=== PATIENT | female | born 1990 ===

== ENCOUNTER 2020-12-24 13:39 | Outpatient (REF) | payer BC, OTHER, SELFPAY | END 2020-12-24 13:40 | disposition home or self-care (01) | LOC: HO.LAB 13:39 | PROVIDERS: Visit Provider Internal Medicine | DX: Z20.822 Contact with and (suspected) exposure to COVID-19 (principal) | CPT/HCPCS: C9803; U0003; U0005 ==

== ENCOUNTER 2021-01-28 09:05 | Outpatient (REF) | payer BC, OTHER, SELFPAY ==
[2021-01-28 09:27] LABS: COVID-19 Test Negative (Negative)
== END 2021-01-28 09:06 | disposition home or self-care (01) ==
LOC: HO.LAB 09:05
PROVIDERS: PCP Family Medicine; Visit Provider Internal Medicine
DX: Z20.822 Contact with and (suspected) exposure to COVID-19 (principal)
CPT/HCPCS: 36415; 87635; C9803

== ENCOUNTER 2021-03-25 09:57 | Outpatient (REF) | payer BC, OTHER, SELFPAY ==
[2021-03-25 10:32] LABS: COVID-19 Test Negative (Negative)
== END 2021-03-25 09:58 | disposition home or self-care (01) ==
LOC: HO.LAB 09:57
PROVIDERS: Visit Provider Internal Medicine
DX: Z20.822 Contact with and (suspected) exposure to COVID-19 (principal)
CPT/HCPCS: 36415; 87635; C9803

== ENCOUNTER 2023-01-05 10:44 | Emergency (ER) | payer BC, SELFPAY ==
--- NOTE | ~2023-01-05 | XR_ITS ---
EXAMINATION: XR CHEST CLINICAL INFORMATION: Chest pain COMPARISON: 02/10/2009 TECHNIQUE: 2 views of the chest were obtained. FINDINGS: No significant abnormality is noted involving the heart, lungs, mediastinum, bony thorax or soft tissues. XR/XR chest 2V IMPRESSION: Unremarkable examination.
--- NOTE | 2023-01-05 10:46 | ECG_ITS ---
Test Reason : CHEST PAIN Blood Pressure : / mmHG Vent. Rate : 064 BPM Atrial Rate : 064 BPM P-R Int : 154 ms QRS Dur : 080 ms QT Int : 396 ms P-R-T Axes : 040 009 024 degrees QTc Int : 408 ms Normal sinus rhythm Normal ECG When compared with ECG of 10-FEB-2009 18:24, No significant change was found Referred By: Generic ED Physician Electronically Signed By:HOMA CARR
[2023-01-05 10:49] VITALS: BP 113/62; PULSE 61; RESP 16; TEMP 36.6; O2SAT 99; BMI 32.7
--- OUTSIDE RECORDS SUMMARY | 2023-01-05 11:14 | XMS_ITS | Continuity of Care Document ---
Author Name Unknown Organization [facility] Address [address] [place] [address]- Care Team Providers Care Finish Rolls Operator Name Role Phone Not on Staff, PCP Primary Care Physician Unavail able Encounter 10/17/19 - 10/24/19 [facility] [address], [address] [place] [address]- [phone] Attending Physician: Matt Tompkins MD Admitting Physician: Not on Staff, Attending MD Referring Physician: Matt Tompkins MD Allergies, Adverse Reactions, Alerts Substance Reaction Severity Status Bactrim Active Immunizations Given and Recorded Vaccine Date Status Refusal Reason tetanus/diphtheria/pertussis, acel(Tdap) 1 04/17/17 Given 1Result Comment: [04/17/2017] vis sheet given nka Medications Diflucan 150 mg oral tablet 1 tablet = 150 mg, By Mouth, Once, # 1 tablet, 0 Refills, Soft Stop, 07/20/17 12:50:00 EDT, Tablet Start Date: 07/20/17 Status: Ordered Ibuprofen Refills 0, Maintenance, 06/13/17 10:23:05 Start Date: 06/13/17 Status: Ordered Tylenol 325 mg oral tablet 650 mg, 2, tablet, By Mouth, Every 4 hours, Refills 0, Maintenance, 06/13/17 10:23:20 Start Date: 06/13/17 Status: Ordered Problem List Condition Effective Dates Status Health Status Inform ant 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 Pap neg 04/2016. Next pap cotesting due 3 months PP Social History Social History Type Response Smoking Status Never smoker entered on: 08/04/17 Sex
--- OUTSIDE RECORDS SUMMARY | 2023-01-05 11:14 | XMS_ITS | Continuity of Care Document ---
Author Name Unknown Organization [facility] Address [address] [place] [id number] Care Team Providers Care Aviation Project Manager Name Role Phone Not on Staff, PCP Primary Care Physician Unavail able [place] [facility] [place] 10/01/19 - 10/31/[address] [address]- [facility] Attending Physician: Dolores Noyola Admitting Physician: Dolores Noyola Referring Physician: Dolores Noyola Allergies, Adverse Reactions, Alerts Substance Reaction Severity [...]
--- NOTE | 2023-01-05 11:18 | ED_ITS ---
HPI - Chest Pain General Chief Complaint: Chest Pain Stated Complaint: chest pain/ L arm pain Time Seen by Provider: 01/05/23 11:07 Source: patient Mode of arrival: ambulatory Limitations: no limitations History of Present Illness HPI narrative: Patient is a 32-year-old female with history of anxiety presenting to the emergency department complaining intermittent chest pain for the past week. States episodes lasts several seconds and then resolved spontaneously. Also complains of pain radiating to left arm. Denies palpitations. Reports that symptoms improved with taking a deep breath. States she is unsure if symptoms are related to anxiety. Reports that her last menstrual period was 11/29. Had 1 episode of lightheadedness today with associated facial tingling. Denies cough or shortness of breath. Denies any nasal congestion, sore throat, other URI symptoms. Denies fevers. Denies abdominal pain. Does report occasional nausea but denies vomiting, diarrhea, constipation. MD complaint: chest pain Onset (ago): day(s) Timing of current episode: episodic Onset: during rest Pain location: substernal Pain radiation: left arm Severity: moderate Quality: heaviness Relieving factors: nothing Exacerbating factors: nothing Associated symptoms: nausea and other (Lightheadedness) Treatment prior to arrival: none Related Data Allergies Allergy/AdvReac Type Severity Reaction Status Date / Time Sulfa (Sulfonamide Allergy Unknown hives Verified 01/05/23 10:54 Antibiotics) sulfamethoxazole Allergy Unknown RASH Verified 01/05/23 10:54 [From BACTRIM] trimethoprim [From BACTRIM] Allergy Unknown RASH Verified 01/05/23 10:54 Review of Systems 2 Review of Systems: As per HPI. Yes all other systems are reviewed and are negative Constitutional: Constitutional: Reports as per HPI [facility] Social History Social History Advance Directives: No Advance Directives Information Provided: Yes Physical Exam 2 Vital Signs: Vital Signs: Last Vital Signs Temp 97.9 F 01/05/23 10:49 Pulse 56 01/05/23 11:46 Resp 10 L 01/05/23 11:46 BP 105/64 01/05/23 11:46 Pulse Ox 98 01/05/23 11:46 O2 Del Method Room Air 01/05/23 11:46 BMI result Body Mass Index 32.7 Vital signs have been reviewed and appear to be correct. Blood pressure normal. Heart rate normal. Respiratory rate normal. Temperature normal. Oxygen saturation normal. Const: General: cooperative, healthy appearing and no acute distress O rientation/consciousness: oriented to person, oriented to place, oriented to time and patient oriented x3 Limitations: no limitations HEENT: Head: Yes normocephalic and Yes atraumatic Ears: external ears normal General nose exam: Normal external nose present Face and sinus: Yes face symmetric Mouth: oropharynx normal and moist mucous membranes Throat: Yes uvula midline Eyes: Pupils: Equal, round and reactive pupils present Neck: Neck: Yes normal visual inspection and Yes supple Chest: Chest palpation & inspection: normal inspection of the chest and normal palpation of entire chest wall Resp: Effort & Inspection: normal respiratory effort and able to speak in complete sentences Auscultation: clear to auscultation bilaterally Cardio: Rate: regular rate Rhythm: regular rhythm Heart sounds: S1 normal heart sound present and S2 normal heart sound present GI: Palpation (GI): Soft to palpation and nontender Auscultation: n ormoactive bowel sounds : General: Yes no CVA tenderness Back/Spine/Pelvis: Back: no CVA tenderness Skin: General skin exam: elasticity normal and turgor normal Neuro: General: oriented to person, oriented to place, oriented to time, patient oriented x3, moves all extremities, no focal motor deficits and CN's II- XI intact bilaterally Cranial nerves: Yes Equal, round and reactive pupils present Cognition (Neuro): normal cognition Extrem: General: Yes full ROM, Yes no pedal edema and Yes no calf tenderness Psych: Mental Status: mental status grossly normal Affect: normal affect Thought process: Normal thought process present Medical Decision Making Medical Decision Making MDM Narrative: Patient is a 32-year-old female with history of anxiety presenting to the emergency department complaining intermittent chest pain for the past week. On exam patient is awake, A+Ox3, VS WNL, afebrile, normal neurological exam without focal deficits, physical exam findings as above.. Given reported symptoms and physical exam findings, initial differential includes ACS, acute anxiety, musculoskeletal pain, pneumothorax, pneumonia. PE unlikely based on PERC rule. Labs notable for no leukocytosis no anemia, no electrolyte abnormalities, negative troponin, negative BNP. X-ray notable for no acute abnormality. My interpretation is in agreement with the radiologist's interpretation. EKG shows normal sinus rhythm, rate 64 beats per minute, normal [place] and QT intervals, no evidence of STEMI. HEART score 0. Patient updated on all results and all questions answered. Instructed patient to follow-up with primary care provider. Will refer to Cardiology for any ongoing symptoms. Return precautions discussed at bedside. Patient verbalized understanding of and agreement with plan. Differential Diagnosis Differential Diagnoses: The differential diagnosis associated with the presentation includes As per MDM. Admission/Observation Consideration of admission/observation: Escalation of care including admission/observation considered Lab Data [facility] Lab Attestation statement: I reviewed the patient's lab results. As per MDM. 01/05/23 11:42 01/05/23 11:42 Labs: Lab Results 01/05/23 01/05/23 Range/Units 11:41 11:42 WBC 6.6 (4.8-10.8) X10*3/uL RBC 4.66 (4.20-5.50) X10*6/uL Hgb 13.2 (12.0-16.0) g/dl Hct 39.9 (37.0-47.0) % MCV 85.6 (80.0-98.0) fL MCH 28.3 (27.0-33.0) pg MCHC 33.1 (31.0-35.0) g/dl RDW 13.2 (11.0-16.0) % Plt Count 182 (160-400) X10*3/uL MPV 13.2 H (9.4-12.3) fL Immature Gran % (Auto) 0.3 (0.0-0.4) % Neut % (Auto) 59.3 (45-73) % Lymph % (Auto) 27.6 (20-40) % Mccracken % (Auto) 9.8 (2-11) % Eos % (Auto) 2.4 (0-4) % Baso % (Auto) 0.6 (0-2) % Lymph # (Auto) 1.8 (1.2-4.9) X10*3/uL M[place]racken # (Auto) 0.7 (0.1-1.2) X10*3/uL Eos # (Auto) 0.2 (0.0-0.4) X10*3/uL Baso # (Auto) 0.0 (0.0-0.2) X10*3/uL Abs Immat Gran (auto) 0.02 (0.00-0.03) X10*3/uL Absolute Neuts (auto) 3.9 (2.0-8.3) x10*3/uL Absolute Nucleated RBC 0.000 (0.0-0.012) X10*3/uL Nucleated RBC % (auto) 0.0 (0.0-0.2) /100WBC Sodium 141 (135-145) mmol/L Potassium 4.4 (3.3-5.1) mmol/L Chloride 107 (96-108) mmol/L Carbon Dioxide 23 (22-29) mmol/L Anion Gap 15 (12-20) BUN 12 (9-16) mg/dL Creatinine 0.86 (0.5-1.4) mg/dL Estim Creat Clear Calc 90.9 Estimated GFR > 60 Random Glucose 79 (60-115) mg/dL Calcium 9.6 (8.4-10.2) mg/dL Troponin I High Sens < 2.7 (<3.5-17.0) ng/L B-Natriuretic Peptide < 10 (<100) pg/mL Beta HCG, Quant < 2 mIU/mL Independent Interpretation I performed an independent interpretation of an: EKG and Plain X-Ray Interpretation: normal sinus rhythm, rate 64 beats per minute, normal [place] and QT intervals, no evidence of STEMI You no acute abnormality on chest x-ray Radiology Impression Discussion of test interpretation with radiology: I have reviewed the radiologist's reading. Radiologist Impression: XR/XR chest 2V IMPRESSION: Unremarkable examination. External Record Review External record reviewed: Inpatient record, Office record and Outpatient record Scores Heart Score History: -0- slightly suspicious ECG: -0- normal Age: -0- < or = 45 Risk factory: -0- no risk factors known Troponin: -0- < or = normal limit Score: 0 Risk: 1.7% Discharge Plan Discharge Clinical Impression: Atypical chest pain Patient Disposition: Home, Self-Care Instructions: Chest Pain (DC) Additional Instructions: You were evaluated in the emergency department today for chest pain. Your evaluation has shown no signs of medical conditions requiring emergent intervention at this time, however we recommend that you follow-up with your primary care physician as soon as possible for further testing as an outpatient. You are being referred to Cardiology for any ongoing symptoms, please contact them to schedule an appointment. Return to the emergency department if you experience worsening or uncontrolled chest pain, shortness of breath, lightheadedness, feeling faint, loss of consciousness, nausea, vomiting, or any other concerning symptoms. Referrals: [facility] Services [Provider Group] Stand Alone Forms: Work/School Release
[2023-01-05 11:46] VITALS: BP 105/64; PULSE 56; RESP 10; O2SAT 98
[2023-01-05 11:53] LABS: MANUAL DIFF FLAG NO
[2023-01-05 11:55] LABS: Basophils Percent Auto 0.6 % (0-2); Eosinophils Absolute Auto 0.2 X10*3/uL (0.0-0.4); Eosinophils Percent Auto 2.4 % (0-4); Hematocrit 39.9 % (37.0-47.0); Hemoglobin 13.2 g/dl (12.0-16.0); Imm Gran Abs Auto 0.02 X10*3/uL (0.00-0.03); Imm Gran Pct Auto 0.3 % (0.0-0.4); Lymphocytes Absolute Auto 1.8 X10*3/uL (1.2-4.9); Lymphocytes Percent Auto 27.6 % (20-40); Mean Corpuscular HGB Conc 33.1 g/dl (31.0-35.0); Mean Corpuscular Hemoglobin 28.3 pg (27.0-33.0); Mean Corpuscular Volume 85.6 fL (80.0-98.0); Mean Platelet Volume 13.2 fL (9.4-12.3); Monocytes Absolute Auto 0.7 X10*3/uL (0.1-1.2); Monocytes Percent Auto 9.8 % (2-11); Neutrophils Absolute Auto 3.9 x10*3/uL (2.0-8.3); Neutrophils Percent Auto 59.3 % (45-73); Platelet Count 182 X10*3/uL (160-400); Red Blood Count 4.66 X10*6/uL (4.20-5.50); Red Cell Distribution Width 13.2 % (11.0-16.0); White Blood Count 6.6 X10*3/uL (4.8-10.8)
[2023-01-05 12:08] LABS: Anion Gap 15 (12-20); Blood Urea Nitrogen 12 mg/dL (9-16); Calcium 9.6 mg/dL (8.4-10.2); Carbon Dioxide 23 mmol/L (22-29); Chloride 107 mmol/L (96-108); Creatinine Clr Calc Pharmacy 90.9; Estimated Glomerular Filt Rate > 60; Glucose Random 79 mg/dL (60-115); Potassium 4.4 mmol/L (3.3-5.1); Sodium 141 mmol/L (135-145)
[2023-01-05 12:13] LABS: B Type Natriuretic Peptide < 10 pg/mL (<100)
[2023-01-05 12:17] LABS: Troponin-I High Sensitivity < 2.7 ng/L (<3.5-17.0)
[2023-01-05 12:17] LABS: HCG Quantitative < 2 mIU/mL
--- NOTE | 2023-01-05 12:39 | PC.NURSE ---
20g IV placed in Right hand. labs drawn as ordered. pt tolerated well.
[2023-01-05 13:22] VITALS: BP 98/65; PULSE 67; RESP 18; O2SAT 100
== END 2023-01-05 13:30 | disposition home or self-care (01) ==
PROVIDERS: Registered Nurse Emergency; Emergency Provider Emergency Medicine; PCP Family Medicine
DX: R07.89 Other chest pain (principal); R20.2 Paresthesia of skin
CPT/HCPCS: 36415; 71046; 80048; 83880; 84484; 84702; 85025; 93005; 99283; 99284